=== PATIENT | female | born 1950 | race Two or more races ===

== ENCOUNTER → 2017-04-13 | Outpatient (CLI) | payer MEDICARE, MEDICAID ==
[~2017-04-13] MED LIST: ATEN-51 PO; CELE200C PO; IBUP800T25 PO
--- NOTE | 2017-04-13 16:58 | RADRPT ---
PROCEDURE: US Lower extremity venous CLINICAL INDICATION: LT LEG EDEMA TECHNIQUE: Multiple sonographic images of the left lower extremity deep venous system was obtaine d utilizing grayscale, color-flow, compressive sonography and doppler imaging with augmentation. Th e images were reviewed on a PACS workstation. COMPARISON: None. FINDINGS: There is normal compressibility and flow within the left common femoral, superficial femoral , post erior tibial, peroneal and popliteal veins. RPTAT: AA IMPRESSION: No sonographic evidence for deep venous thrombosis in the left lower extremity. Physician Ashvin Date Time Electronically viewed and signed by Physician Ashvin on 04/13/2017 16:58 /
== END | disposition home or self-care (01) ==
LOC: RAD 15:57
PROVIDERS: ATTEND Internal Medicine
DX: R60.0 Localized edema (principal)
CPT/HCPCS: 93971

== ENCOUNTER → 2018-11-29 | Outpatient (CLI) | payer MEDICARE, OTHER ==
[~2018-11-29] MED LIST changes: +IBUP-1544 PO; -IBUP800T25 PO
== END | disposition home or self-care (01) ==
LOC: RAD 14:13
PROVIDERS: ATTEND Internal Medicine
DX: Z01.818 Encounter for other preprocedural examination (principal); R05 Cough; M17.10 Unilateral primary osteoarthritis, unspecified knee
CPT/HCPCS: 71046

== ENCOUNTER → 2019-05-15 | Outpatient (CLI) | payer MEDICARE, OTHER | END | disposition home or self-care (01) | LOC: RAD 13:22 | PROVIDERS: ATTEND Internal Medicine | DX: Z01.818 Encounter for other preprocedural examination (principal) | CPT/HCPCS: 71045 ==